=== PATIENT | male | born 1975 | race Caucasian/White ===

== ENCOUNTER 2017-08-06 05:29 | Emergency (ER) | payer BC ==
[~2017-08-06] VITALS: Ht 182.9 cm; Wt 93.2 kg
[~2017-08-06 05:29] MED LIST: ALBUTEROL SUL0.083 % IN
[2017-08-06 06:58] LABS: HEMATOCRIT 50.7 % (39.0-50.0); HEMOGLOBIN 17.4 g/dl (14.0-18.0); IMMATURE GRANULOCYTES 0.2 % (0.0-1.0); MEAN CELL VOLUME 97.1 fL CALC (80.0-100.0); MEAN CORPUSCULAR HGB 33.3 pG CALC (26.0-32.0); MEAN CORPUSCULAR HGB CONC 34.3 g/L CALC (32.0-36.0); NEUT# 4.74 thou/uL (1.82-7.42); RED BLOOD COUNT 5.22 mill/uL (4.70-6.10); RED CELL DISTRI WIDTH 11.9 % (11.5-15.5)
[2017-08-06 07:04] LABS: ACT PARTIAL THROMBO TIME 29.8 SECONDS (20.0-32.5); INTERNATIONAL NORMALIZED RATIO 0.9 RATIO (0.7-1.3)
[2017-08-06 07:05] LABS: ALBUMIN 5.1 g/dL (3.2-5.0); ALKALINE PHOSPHATASE 108 u/l (38-126); ANION GAP 17 (6-22 (CALC)); BILIRUBIN, TOTAL 0.5 mg/dL (0.0-1.4); BUN 17 mg/dL (9-20); BUN/CREATININE RATIO 16 (12-20 (CALC)); CALCIUM 10.7 mg/dL (8.4-10.2); CARBON DIOXIDE 25 mmol/l (22-30); CHLORIDE 104 mmol/l (95-108); GFR > 60 ML/MIN (>=60 (CALC)); GFR FOR AFR.AMER. > 60 ML/MIN (>=60 (CALC)); GLUCOSE 104 mg/dL (75-110); POTASSIUM 4.3 mmol/l (3.5-5.1); SGOT/AST 75 u/l (17-59); SGPT/ALT 47 u/l (21-72); SODIUM 141 mmol/l (137-146); TOTAL PROTEIN 8.3 g/dL (6.3-8.2)
[2017-08-06 07:17] LABS: MYOGLOBIN 79 ng/mL (0 - 121)
[2017-08-06 10:00] LABS: URINE BILIRUBIN - DIPSTICK NEGATIVE (NEGATIVE); URINE BLOOD DIPSTICK NEGATIVE (NEGATIVE); URINE COLOR YELLOW; URINE GLUCOSE - DIPSTICK NEGATIVE (NEGATIVE); URINE KETONE TRACE mg/dL (NEGATIVE); URINE LEUK ESTERASE NEGATIVE (NEGATIVE); URINE NITRITE - DIPSTICK NEGATIVE (Negative); URINE PROTEIN - DIPSTICK NEGATIVE (NEG-TRACE); URINE UROBILINOGEN - DIPSTICK 0.2 E.U./dL (0.2)
[2017-08-06 10:03] LABS: URINE CLARITY CLEAR
[2017-08-06 10:12] LABS: BARBITURATES NEGATIVE (NEGATIVE); COCAINE NEGATIVE (NEGATIVE); METHADONE NEGATIVE (NEGATIVE); OXCYCODONE NEGATIVE (NEGATIVE); TETRAHYDROCANNABIONOL NEGATIVE (NEGATIVE); TRICYLIC ANTIDEPRESSANTS NEGATIVE (NEGATIVE)
[2017-08-06 11:12] LABS: LIPASE 79 u/l (23-300)
[2017-08-06] MEDS ORDERED: PROTONIX40 MG PO (11:35)
[2017-08-06 11:58] VITALS: BP 141/83
== END 2017-08-06 12:05 | disposition home or self-care (01) | DRG 313 ==
LOC: ED 05:29
PROVIDERS: Emergency Medicine
DX: R07.89 Other chest pain (principal); F17.210 Nicotine dependence, cigarettes, uncomplicated; Z72.89 Other problems related to lifestyle; R11.0 Nausea

== ENCOUNTER 2017-12-01 08:17 | Emergency (ER) | payer BC ==
[~2017-12-01] VITALS: Ht 182.9 cm; Wt 93.0 kg
[~2017-12-01 08:17] MED LIST changes: +PROTONIX40 MG PO
[2017-12-01 09:19] LABS: INFLUENZA A NONE DETECTED (NONE DETECT); INFLUENZA B NONE DETECTED (NONE DETECT)
[2017-12-01] MEDS ORDERED: PROVENTIL HFA IN (09:26)
[2017-12-01] MEDS ORDERED: ZITHROMAX250 MG PO (09:26)
[2017-12-01] MEDS ORDERED: MEDDOSEPAK PO (09:30)
[2017-12-01 09:40] VITALS: BP 129/81
== END 2017-12-01 09:40 | disposition home or self-care (01) | DRG 203 ==
LOC: ED 08:17
PROVIDERS: Emergency Medicine
DX: J45.909 Unspecified asthma, uncomplicated (principal); F17.210 Nicotine dependence, cigarettes, uncomplicated

== ENCOUNTER 2019-03-25 01:57 | Emergency (ER) | payer BC ==
[~2019-03-25] VITALS: Ht 182.9 cm; Wt 107.6 kg
[~2019-03-25 01:57] MED LIST changes: +MEDDOSEPAK PO; +PROVENTIL HFA IN; +ZITHROMAX250 MG PO
[2019-03-25 02:45] LABS: HEMATOCRIT 46.6 % (39.0-50.0); HEMOGLOBIN 15.7 g/dl (14.0-18.0); IMMATURE GRANULOCYTES 0.3 % (0.0-5.0); MEAN CELL VOLUME 97.9 fL CALC (80.0-100.0); MEAN CORPUSCULAR HGB CONC 33.7 g/L CALC (32.0-36.0); NEUT# 3.24 thou/uL (1.82-7.42); RED BLOOD COUNT 4.76 mill/uL (4.70-6.10); RED CELL DISTRI WIDTH 11.6 % (11.5-15.5)
[2019-03-25 02:49] LABS: URINE BILIRUBIN - DIPSTICK NEGATIVE (NEGATIVE); URINE BLOOD DIPSTICK NEGATIVE (NEGATIVE); URINE COLOR YELLOW; URINE GLUCOSE - DIPSTICK 100 mg/dL (NEGATIVE); URINE KETONE NEGATIVE (NEGATIVE); URINE LEUK ESTERASE NEGATIVE (NEGATIVE); URINE NITRITE - DIPSTICK NEGATIVE (Negative); URINE PROTEIN - DIPSTICK NEGATIVE (NEG-TRACE); URINE SPECIFIC GRAVITY 1.015; URINE UROBILINOGEN - DIPSTICK 0.2 E.U./dL (0.2)
[2019-03-25 02:58] LABS: COCAINE NEGATIVE (NEGATIVE); METHADONE NEGATIVE (NEGATIVE); TETRAHYDROCANNABIONOL NEGATIVE (NEGATIVE)
[2019-03-25 02:59] LABS: BARBITURATES NEGATIVE (NEGATIVE); OXCYCODONE NEGATIVE (NEGATIVE); TRICYLIC ANTIDEPRESSANTS NEGATIVE (NEGATIVE)
[2019-03-25 03:05] LABS: ACT PARTIAL THROMBO TIME 26.8 SECONDS (20.0-32.5); INTERNATIONAL NORMALIZED RATIO 0.9 RATIO (0.7-1.3); PROTHROMBIN TIME 9.4 SECONDS (9.0-12.5)
[2019-03-25 03:07] LABS: ALBUMIN 4.8 g/dL (3.2-5.0); ALKALINE PHOSPHATASE 98 u/l (38-126); AMYLASE 103 u/l (30-110); ANION GAP 12 (6-22 (CALC)); BUN 16 mg/dL (9-20); BUN/CREATININE RATIO 14 (12-20 (CALC)); CARBON DIOXIDE 30 mmol/l (22-30); CHLORIDE 104 mmol/l (95-108); CREATININE 1.1 mg/dL (0.7-1.3); GFR > 60 ML/MIN (>=60 (CALC)); GFR FOR AFR.AMER. > 60 ML/MIN (>=60 (CALC)); LIPASE 353 u/l (23-300); POTASSIUM 4.3 mmol/l (3.5-5.1); SGOT/AST 50 u/l (17-59); SODIUM 141 mmol/l (137-146); TOTAL PROTEIN 7.6 g/dL (6.3-8.2)
[2019-03-25 03:08] LABS: BILIRUBIN, TOTAL 0.2 mg/dL (0.0-1.4)
[2019-03-25 04:25] VITALS: BP 130/68
== END 2019-03-25 04:25 | disposition short-term general hospital (02) | DRG 311 ==
LOC: ED 01:57
DX: I24.9 Acute ischemic heart disease, unspecified (principal); F17.200 Nicotine dependence, unspecified, uncomplicated; E66.3 Overweight
CPT/HCPCS: J1644

== ENCOUNTER 2020-01-30 05:24 | Emergency (ER) | payer OTHER ==
[~2020-01-30] VITALS: Ht 182.9 cm; Wt 100.0 kg
[2020-01-30] MEDS ORDERED: COZAAR50 MG PO (05:38)
[2020-01-30 06:09] LABS: IMMATURE GRANULOCYTES 0.3 % (0.0-5.0); MEAN CELL VOLUME 99.4 fL CALC (80.0-100.0); MEAN CORPUSCULAR HGB 32.4 pG CALC (26.0-32.0); MEAN CORPUSCULAR HGB CONC 32.6 g/dL CAL (32.0-36.0); NEUT# 3.06 thou/uL (1.82-7.42); RED BLOOD COUNT 4.63 mill/uL (4.70-6.10); RED CELL DISTRI WIDTH 11.6 % (11.5-15.5)
[2020-01-30 06:14] LABS: ALBUMIN 4.6 g/dL (3.2-5.0); ALKALINE PHOSPHATASE 75 u/l (38-126); AMYLASE 82 u/l (30-110); BUN 17 mg/dL (9-20); BUN/CREATININE RATIO 22 (12-20 (CALC)); CARBON DIOXIDE 26 mmol/l (22-30); CHLORIDE 102 mmol/l (95-108); CREATININE 0.8 mg/dL (0.7-1.3); GFR > 60 ML/MIN (>=60 (CALC)); GFR FOR AFR.AMER. > 60 ML/MIN (>=60 (CALC)); LIPASE 127 u/l (23-300); POTASSIUM 4.4 mmol/l (3.5-5.1); SGOT/AST 48 u/l (17-59)
[2020-01-30 06:16] LABS: ANION GAP 8 (6-22 (CALC)); BILIRUBIN, TOTAL 0.3 mg/dL (0.0-1.4); SODIUM 132 mmol/l (137-146)
[2020-01-30] MEDS ORDERED: FLEXERIL PO ×3 (08:08→08:16)
[2020-01-30] MEDS ORDERED: IBUPROFEN600 MG PO ×3 (08:08→08:16)
[2020-01-30 08:10] VITALS: BP 160/93
== END 2020-01-30 08:22 | disposition home or self-care (01) | DRG 563 ==
LOC: ED 05:24
PROVIDERS: Emergency Medicine
DX: S39.011A Strain of muscle, fascia and tendon of abdomen, initial encounter (principal); I10 Essential (primary) hypertension; F17.210 Nicotine dependence, cigarettes, uncomplicated; X58.XXXA Exposure to other specified factors, initial encounter
CPT/HCPCS: Q9967

== ENCOUNTER 2020-06-18 11:31 | Emergency (ER) | payer OTHER ==
[~2020-06-18] VITALS: Ht 182.9 cm; Wt 102.0 kg
[~2020-06-18 11:31] MED LIST changes: +COZAAR50 MG PO; +FLEXERIL PO; +IBUPROFEN600 MG PO
[2020-06-18] MEDS ORDERED: ZPAK PO (13:36)
[2020-06-18] MEDS ORDERED: PREDNISONE50 MG PO (13:36)
[2020-06-18] MEDS ORDERED: PROAIR HFA108 MCG/AC PO (13:39)
[2020-06-18 14:04] VITALS: BP 148/89
[2020-06-18] MEDS ORDERED: BC HEADACH1 PO (14:25)
[2020-06-18] MEDS ORDERED: ALLERGY NA50 MCG/ACT IN (14:27)
[2020-06-18] MEDS ORDERED: METOPROLOL TAR100 MG PO (14:27)
[2020-06-18] MEDS ORDERED: LEVOTHYROXIN50 MCG PO (14:28)
[2020-06-18] MEDS ORDERED: PROAIR HFA IN (14:29)
[2020-06-18] MEDS ORDERED: NIFEDIPINE ER90 M1 PO (14:29)
== END 2020-06-18 14:04 | disposition home or self-care (01) | DRG 203 ==
LOC: ED 11:31
DX: J45.909 Unspecified asthma, uncomplicated (principal); I10 Essential (primary) hypertension; F17.210 Nicotine dependence, cigarettes, uncomplicated; Z20.828 Contact with and (suspected) exposure to other viral communicable diseases

== ENCOUNTER 2020-10-13 20:41 | Emergency (ER) | payer OTHER ==
[~2020-10-13] VITALS: Ht 180.3 cm; Wt 104.5 kg
[~2020-10-13 20:41] MED LIST changes: +ALLERGY NA50 MCG/ACT IN; +BC HEADACH1 PO; +LEVOTHYROXIN50 MCG PO; +METOPROLOL TAR100 MG PO; +NIFEDIPINE ER90 M1 PO; +PREDNISONE50 MG PO; +PROAIR HFA IN; +PROAIR HFA108 MCG/AC PO; +ZPAK PO
[2020-10-13 21:23] VITALS: BP 133/81
== END 2020-10-13 21:34 | disposition home or self-care (01) | DRG 605 ==
LOC: ED 20:41
PROC: 0HQGXZZ Repair Left Hand Skin, External Approach (ICD-10-PCS; principal; 2020-10-13)
DX: S61.412A Laceration without foreign body of left hand, initial encounter (principal); I10 Essential (primary) hypertension; J45.909 Unspecified asthma, uncomplicated; F17.200 Nicotine dependence, unspecified, uncomplicated; W45.8XXA Other foreign body or object entering through skin, initial encounter; Y93.E9 Activity, other interior property and clothing maintenance; Y92.009 Unspecified place in unspecified non-institutional (private) residence as the place of occurrence of the external cause

== ENCOUNTER 2021-04-23 09:40 | Emergency (ER) | payer OTHER ==
[~2021-04-23] VITALS: Ht 180.3 cm; Wt 100.0 kg
[2021-04-23 10:30] LABS: HEMATOCRIT 50.4 % (39.0-50.0); HEMOGLOBIN 16.8 g/dl (14.0-18.0); IMMATURE GRANULOCYTES 0.1 % (0.0-5.0); MEAN CELL VOLUME 98.6 fL CALC (80.0-100.0); MEAN CORPUSCULAR HGB 32.9 pG CALC (26.0-32.0); MEAN CORPUSCULAR HGB CONC 33.3 g/dL CAL (32.0-36.0); NEUT# 4.58 thou/uL (1.82-7.42); RED BLOOD COUNT 5.11 mill/uL (4.70-6.10); RED CELL DISTRI WIDTH 11.2 % (11.5-15.5)
[2021-04-23 10:52] LABS: ALBUMIN 4.4 g/dL (3.2-5.0); ALKALINE PHOSPHATASE 79 u/l (38-126); ANION GAP 11 (6-22 (CALC)); BILIRUBIN, TOTAL 0.8 mg/dL (0.0-1.4); BUN 17 mg/dL (9-20); BUN/CREATININE RATIO 20 (12-20 (CALC)); CARBON DIOXIDE 26 mmol/l (22-30); CHLORIDE 103 mmol/l (95-108); CREATININE 0.8 mg/dL (0.7-1.3); GFR > 60 ML/MIN (>=60 (CALC)); GFR FOR AFR.AMER. > 60 ML/MIN (>=60 (CALC)); POTASSIUM 4.8 mmol/l (3.5-5.1); SGOT/AST 37 u/l (17-59); SODIUM 135 mmol/l (137-146); TOTAL PROTEIN 7.6 g/dL (6.3-8.2)
[2021-04-23] MEDS ORDERED: MEDDOSEPAK PO (11:22)
[2021-04-23 11:26] VITALS: BP 144/101
[2021-04-23] MEDS ORDERED: DOXYCYCLINE100 MG PO (11:31)
== END 2021-04-23 11:30 | disposition home or self-care (01) | DRG 607 ==
LOC: ED 09:40
DX: L25.9 Unspecified contact dermatitis, unspecified cause (principal); I10 Essential (primary) hypertension; J45.909 Unspecified asthma, uncomplicated; F17.210 Nicotine dependence, cigarettes, uncomplicated

== ENCOUNTER 2022-02-13 20:28 | Observation (INO) | payer SELFPAY ==
[2022-02-13] VITALS (7 sets, daily range): BP systolic 123–144; BP diastolic 82–97
[~2022-02-13] VITALS: Ht 180.3 cm; Wt 100.7 kg
[~2022-02-13 20:28] MED LIST changes: +DOXYCYCLINE100 MG PO
[2022-02-13 21:18] LABS: HEMATOCRIT 44.7 % (39.0-50.0); HEMOGLOBIN 15.3 g/dl (14.0-18.0); IMMATURE GRANULOCYTES 0.3 % (0.0-5.0); MEAN CELL VOLUME 94.7 fL CALC (80.0-100.0); MEAN CORPUSCULAR HGB 32.4 pG CALC (26.0-32.0); MEAN CORPUSCULAR HGB CONC 34.2 g/dL CAL (32.0-36.0); NEUT# 3.19 thou/uL (1.82-7.42); RED BLOOD COUNT 4.72 mill/uL (4.70-6.10); RED CELL DISTRI WIDTH 12.5 % (11.5-15.5)
[2022-02-13 21:34] LABS: INTERNATIONAL NORMALIZED RATIO 0.9 RATIO (0.7-1.3); PROTHROMBIN TIME 9.8 SECONDS (9.0-12.5)
[2022-02-13 21:35] LABS: ALBUMIN 4.1 g/dL (3.2-5.0); ALKALINE PHOSPHATASE 88 u/l (38-126); BUN 13 mg/dL (9-20); BUN/CREATININE RATIO 11 (12-20 (CALC)); CARBON DIOXIDE 22 mmol/l (22-30); CHLORIDE 113 mmol/l (95-108); CREATININE 1.2 mg/dL (0.7-1.3); GFR FOR AFR.AMER. > 60 ML/MIN (>=60 (CALC)); GFR OTHER RACES > 60 ML/MIN (>=60 (CALC)); POTASSIUM 4.3 mmol/l (3.5-5.1); SGOT/AST 29 u/l (17-59); TOTAL PROTEIN 6.9 g/dL (6.3-8.2)
[2022-02-13 21:46] LABS: ANION GAP 12 (6-22 (CALC)); BILIRUBIN, TOTAL 0.2 mg/dL (0.0-1.4); SODIUM 143 mmol/l (137-146)
[2022-02-13 22:32] LABS: URINE BILIRUBIN - DIPSTICK NEGATIVE (NEGATIVE); URINE BLOOD DIPSTICK NEGATIVE (NEGATIVE); URINE COLOR YELLOW; URINE GLUCOSE - DIPSTICK NEGATIVE (NEGATIVE); URINE KETONE NEGATIVE (NEGATIVE); URINE LEUK ESTERASE NEGATIVE (NEGATIVE); URINE PROTEIN - DIPSTICK NEGATIVE (NEG-TRACE); URINE SPECIFIC GRAVITY >=1.030; URINE UROBILINOGEN - DIPSTICK 0.2 E.U./dL (0.2)
[2022-02-13 22:35] LABS: URINE NITRITE - DIPSTICK NEGATIVE (Negative)
[2022-02-14] VITALS (8 sets, daily range): BP systolic 124–139; BP diastolic 67–91
[2022-02-14 06:02] LABS: C-REACTIVE PROTEIN 0.5 mg/dL (0-0.9); CHOLESTEROL HDL RATIO 2.4 (<4.4 (CALC)); MAGNESIUM 2.1 mg/dL (1.6-2.3)
[2022-02-14] MEDS ORDERED: PLAVIX75 MG PO (15:17)
[2022-02-14] MEDS ORDERED: ADVAIR DISK1 IN (15:17)
[2022-02-14] MEDS ORDERED: ATORVASTATIN CA40 MG PO (15:17)
[2022-02-14] MEDS ORDERED: ADLT ASA LOW81 MG PO (15:17)
[2022-02-15 06:55] VITALS: BP 129/72
== END 2022-02-15 10:14 | disposition home or self-care (01) | DRG 69 ==
LOC: ED 20:28 → ED-I 22:00 → ED 22:32 → MS2 22:32
PROVIDERS: Emergency Medicine; ADMIT Internal Medicine; ATTEND Internal Medicine
DX: G45.9 Transient cerebral ischemic attack, unspecified (principal); I10 Essential (primary) hypertension; J44.9 Chronic obstructive pulmonary disease, unspecified; G43.909 Migraine, unspecified, not intractable, without status migrainosus; F17.210 Nicotine dependence, cigarettes, uncomplicated; Z20.822 Contact with and (suspected) exposure to COVID-19
CPT/HCPCS: G0378; Q3014